=== PATIENT | female | born 1990 | race Caucasian/White ===

== ENCOUNTER 2021-07-14 13:36 | Emergency (ER) | payer MEDICAID ==
[~2021-07-14] VITALS: Ht 165.1 cm; Wt 104.6 kg
[2021-07-14] MEDS ORDERED: ALBUTEROL 90 MCG/ACT 8GM HFA INHALER INH ONE (14:35)
--- NOTE | 2021-07-14 15:10 | REP ---
INDICATION: sob COMPARISON: None. TECHNIQUE: PA and lateral. FINDINGS: The mediastinum and cardiac silhouette are normal. The lung murdock are clear and without acute consolidation, effusion, or pneumothorax. The skeletal structures are intact and normal. IMPRESSION: No acute cardiopulmonary process. <Electronically signed by Asher Bardales > 07/14/21 0737
[2021-07-14 16:10] VITALS: BP 130/66
--- NOTE | 2021-07-14 18:15 | ECGEPIP ---
[facility] - ED Test Date: 2021-07-14 Pat Name: THUY ARREAGA Department: Room: - Gender: Female Health Data Administrator: : [id number] Requested By: CONSUELO CUMMINGS PA-C. Order Number: [id number] Reading MD: Jorge Luis Brumfield Measurements Intervals [place] Rate: 82 P: 45 [place]: 156 QRS: 44 QRSD: 106 T: 60 QT: 376 QTc: 439 Interpretive Statements Normal sinus rhythm POOR R WAVE PROGRESSION NO PRIORS FOR COMPARISON Electronically Signed on 07-14-2021 18:14:46 EST by Jorge Luis Brumfield
== END 2021-07-14 16:13 | disposition home or self-care (01) ==
LOC: M ED 13:36
DX: J98.01 Acute bronchospasm (principal); J45.909 Unspecified asthma, uncomplicated; F33.9 Major depressive disorder, recurrent, unspecified; F41.9 Anxiety disorder, unspecified; F43.10 Post-traumatic stress disorder, unspecified; Z91.048 Other nonmedicinal substance allergy status

== ENCOUNTER 2021-09-25 11:17 | Emergency (ER) | payer MEDICAID, OTHER ==
[~2021-09-25] VITALS: Ht 165.1 cm; Wt 113.6 kg
[2021-09-25] MEDS ORDERED: KETO10TAB PO (15:19)
[2021-09-25 15:35] VITALS: BP 121/66
== END 2021-09-25 16:00 | disposition home or self-care (01) ==
LOC: M ED 11:17
DX: M25.551 Pain in right hip (principal); M54.50 Low back pain, unspecified; J45.909 Unspecified asthma, uncomplicated; F31.9 Bipolar disorder, unspecified; F33.9 Major depressive disorder, recurrent, unspecified; F41.9 Anxiety disorder, unspecified; F43.10 Post-traumatic stress disorder, unspecified; K21.9 Gastro-esophageal reflux disease without esophagitis; K44.9 Diaphragmatic hernia without obstruction or gangrene; Z91.048 Other nonmedicinal substance allergy status
CPT/HCPCS: 72110; 72220; 73502; 73700; 96372; 99283; J1885

== ENCOUNTER 2021-10-23 07:31 | Emergency (ER) | payer OTHER ==
[~2021-10-23] VITALS: Ht 165.1 cm; Wt 112.7 kg
[~2021-10-23 07:31] MED LIST: KETO10TAB PO
[2021-10-23 07:32] VITALS: BP 134/74
[2021-10-23] MEDS ORDERED: CYCL-707 (07:42)
[2021-10-23] MEDS ORDERED: FLUT1INH2 (07:42)
[2021-10-23] MEDS ORDERED: TUMS500C PO (07:42)
[2021-10-23] MEDS ORDERED: ARIP10TA32 (07:42)
[2021-10-23] MEDS ORDERED: ALBU8.5H (07:42)
[2021-10-23] MEDS ORDERED: NEXI20CA PO (07:42)
[2021-10-23] MEDS ORDERED: BUPR150T12 (07:42)
[2021-10-23] MEDS ORDERED: KETOROLAC 30 MG/ML 1ML VIAL IV ONE (08:00)
[2021-10-23] MEDS ORDERED: ONDANSETRON 4MG/2ML VIAL IV ONE (08:00)
[2021-10-23] MEDS ORDERED: PANTOPRAZOLE 40MG VIAL (C9113 PER 1) IV ONE (08:00)
[2021-10-23] MEDS ORDERED: NS 1,000 ML IV ONE (08:05)
[2021-10-23 08:19] LABS: BASO % 0.4 % (0.0-1.0); EOS # 0.1 10^3/uL (0.0-0.5); EOS % 0.9 % (0.0-3.0); HEMATOCRIT 40.1 % (36.0-47.0); HEMOGLOBIN 13.3 g/dl (12.0-15.5); LYMPH # 3.2 10^3/uL (1.5-5.0); LYMPH % 33.6 % (24.0-44.0); MEAN CORPUSCULAR HEMOGLOBIN 29.3 pg (27.0-33.0); MEAN CORPUSCULAR HGB CONC 33.2 g/dl (32.0-36.5); MEAN CORPUSCULAR VOLUME 88.3 fl (80.0-96.0); MONO # 0.5 10^3/uL (0.0-0.8); MONO % 4.8 % (2.0-8.0); NEUTROPHILS # 5.8 10^3/uL (1.5-8.5); NEUTROPHILS % 59.9 % (36.0-66.0); PLATELET COUNT, AUTOMATED 337 10^3/uL (150-450); RED BLOOD COUNT 4.54 10^6/uL (4.00-5.40); WHITE BLOOD COUNT 9.6 10^3/uL (4.0-10.0)
[2021-10-23 08:43] LABS: ALBUMIN 3.8 GM/DL (3.2-5.2); ALT/SGPT 36 U/L (12-78); BILIRUBIN,DIRECT < 0.1 MG/DL (0.0-0.2); BILIRUBIN,TOTAL 0.3 MG/DL (0.2-1.0); LIPASE 93 U/L (73-393); TOTAL PROTEIN 7.8 GM/DL (6.4-8.2)
[2021-10-23 08:45] LABS: HCG, SERUM QUALITATIVE NEGATIVE (NEGATIVE)
[2021-10-23] MEDS ORDERED: ISOVUE-370 76% 100ML VIAL As Ordered ONE (08:59)
[2021-10-23] MEDS ORDERED: ONDA4TAB6 PO (10:19)
== END 2021-10-23 10:42 | disposition home or self-care (01) ==
LOC: M ED 07:31
DX: J09.X9 Influenza due to identified novel influenza A virus with other manifestations (principal); R10.13 Epigastric pain; R11.2 Nausea with vomiting, unspecified; K76.0 Fatty (change of) liver, not elsewhere classified; R16.0 Hepatomegaly, not elsewhere classified; M79.7 Fibromyalgia; F31.9 Bipolar disorder, unspecified; F43.10 Post-traumatic stress disorder, unspecified; F41.9 Anxiety disorder, unspecified; Z79.899 Other long term (current) drug therapy; Z91.048 Other nonmedicinal substance allergy status
CPT/HCPCS: 74177; 80047; 80076; 83690; 84702; 84703; 85025; 87804; 96361; 96374; 96375; 99283; C9113; J1885; J2405; Q9967

== ENCOUNTER → 2021-12-08 | Outpatient (CLI) | payer OTHER ==
[~2021-12-08] MED LIST changes: +ALBU8.5H; +ARIP10TA32; +BUPR150T12; +CYCL-707; +FLUT1INH2; +NEXI20CA PO; +ONDA4TAB6 PO; +TUMS500C PO
== END ==
LOC: M PLAIMG 14:12
PROVIDERS: ATTEND Nurse Practitioner Adult Health
DX: J45.40 Moderate persistent asthma, uncomplicated (principal)

== ENCOUNTER → 2022-06-25 | Outpatient (CLI) | payer OTHER ==
[2022-06-25 12:14] LABS: HEMOGLOBIN 12.6 g/dl (12.0-15.5); MEAN CORPUSCULAR HEMOGLOBIN 28.4 pg (27.0-33.0); MEAN CORPUSCULAR HGB CONC 32.3 g/dl (32.0-36.5); PLATELET COUNT, AUTOMATED 305 10^3/uL (150-450); RED BLOOD COUNT 4.43 10^6/uL (4.00-5.40); WHITE BLOOD COUNT 7.2 10^3/uL (4.0-10.0)
[2022-06-25 12:33] LABS: HCG, SERUM QUALITATIVE NEGATIVE (NEGATIVE)
[2022-06-25 12:46] LABS: C REACTIVE PROTEIN QUANTITATIV 0.75 MG/DL (0.00-0.30); RHEUMATOID FACTOR QUANT < 10.0 IU/ML (<15.0)
[2022-06-25 13:59] LABS: ERYTHROCYTE SEDIMENTATION RATE 27 mm/hr (0-20)
== END ==
LOC: M LAB 10:50
PROVIDERS: ATTEND Internal Medicine
DX: M79.7 Fibromyalgia (principal); N91.1 Secondary amenorrhea

== ENCOUNTER → 2022-07-02 | Outpatient (CLI) | payer OTHER | LOC: M PLARAD 14:12 | PROVIDERS: ATTEND Nurse Practitioner Family | DX: M54.16 Radiculopathy, lumbar region (principal) ==

== ENCOUNTER 2022-09-21 09:52 | Day surgery (SDC) | payer OTHER ==
[~2022-09-21] VITALS: Ht 165.1 cm; Wt 102.4 kg
[~2022-09-21 09:52] MED LIST changes: +BACL10TA2 PO; +CETI-24 PO; +DULO1CAP5 PO; +FLUO20CA22 PO; +HYDR-3363 PO; +MONT10TA97 PO; +NS 1,000 ML IV ONE; +SUMA50TA2 PO
[2022-09-21] MEDS ORDERED: fentaNYL 100 MCG/2 ML INJECTION As Ordered ONE (10:57)
[2022-09-21] MEDS ORDERED: propofoL 200 MG/20 ML VIAL As Ordered ONE (10:57)
[2022-09-21] MEDS ORDERED: LIDOCAINE 2% 100MG/5ML SDV (FOR ANES.) As Ordered ONE (10:57)
[2022-09-21 11:51] VITALS: BP 120/88
== END 2022-09-21 11:52 | disposition home or self-care (01) ==
LOC: M OPP 09:52
PROVIDERS: ATTEND Internal Medicine Gastroenterology
DX: K58.1 Irritable bowel syndrome with constipation (principal); K64.8 Other hemorrhoids; R10.13 Epigastric pain; Z79.1 Long term (current) use of non-steroidal anti-inflammatories (NSAID); Z79.51 Long term (current) use of inhaled steroids; Z79.52 Long term (current) use of systemic steroids; Z79.899 Other long term (current) drug therapy; J45.909 Unspecified asthma, uncomplicated; G43.909 Migraine, unspecified, not intractable, without status migrainosus; Z87.891 Personal history of nicotine dependence; Z91.011 Allergy to milk products; Z91.048 Other nonmedicinal substance allergy status

== ENCOUNTER → 2023-01-14 | Outpatient (CLI) | payer OTHER ==
[~2023-01-14] MED LIST changes: -NS 1,000 ML IV ONE
== END ==
LOC: M SLEEP HO 11:36
PROVIDERS: ATTEND Nurse Practitioner Adult Health
DX: G47.30 Sleep apnea, unspecified (principal)

== ENCOUNTER → 2023-07-08 | Outpatient (CLI) | payer OTHER | LOC: M PLAIMG 15:13 | PROVIDERS: ATTEND Internal Medicine | DX: M25.40 Effusion, unspecified joint (principal) ==

== ENCOUNTER → 2023-07-08 | Outpatient (REF) | payer OTHER, MEDICAID ==
[2023-07-08 17:31] LABS: C REACTIVE PROTEIN QUANTITATIV 2.4 MG/DL (<1.0)
[2023-07-08 17:32] LABS: COMPLEMENT C3 204.7 MG/DL (84.0-160.0); COMPLEMENT C4 34.7 MG/DL (12-36); IMMUNOGLOBULIN M 205.2 MG/DL (50-300)
[2023-07-08 17:33] LABS: PERCENT SATURATION 19.5 % (13.2-45.0)
[2023-07-08 17:34] LABS: CREATININE,RANDOM URINE 84.8 MG/DL
[2023-07-08 17:35] LABS: FERRITIN 145.4 NG/ML (7.3-270.7)
[2023-07-08 17:58] LABS: APPEARANCE, URINE HAZY (CLEAR); BACTERIA, URINE AUTO 1+ (NEGATIVE); BILIRUBIN, URINE AUTO NEGATIVE (NEGATIVE); BLOOD, URINE BLOOD NEGATIVE (NEGATIVE); COLOR, URINE YELLOW (YELLOW); GLUCOSE, URINE (UA) AUTO NEGATIVE (NEGATIVE); KETONE, URINE AUTO NEGATIVE (NEGATIVE); LEUKOCYTE ESTERASE, URINE AUTO 3+ (NEGATIVE); MUCUS, URINE SMALL (NEGATIVE); NITRITE, URINE AUTO NEGATIVE (NEGATIVE); PROTEIN, URINE AUTO NEGATIVE (NEGATIVE); RBC, URINE AUTO 2 /HPF (0-3); SPECIFIC GRAVITY URINE AUTO 1.008 (1.002-1.035); SQUAMOUS EPITHELIAL CELL UR AU 5 /HPF (0-6); UROBILINOGEN, URINE AUTO 0.2 mg/dL (0.0-2.0); WBC, URINE AUTO 36 /HPF (0-3)
== END ==
LOC: M SFHCRHEU 13:46
PROVIDERS: ATTEND Internal Medicine
DX: R53.83 Other fatigue (principal); M79.7 Fibromyalgia; B99.9 Unspecified infectious disease; M25.40 Effusion, unspecified joint

== ENCOUNTER → 2023-09-05 | Outpatient (REF) | payer OTHER, MEDICAID ==
[2023-09-05 16:28] LABS: APPEARANCE, URINE CLEAR (CLEAR); BACTERIA, URINE AUTO NEGATIVE (NEGATIVE); BILIRUBIN, URINE AUTO NEGATIVE (NEGATIVE); BLOOD, URINE BLOOD 1+ (NEGATIVE); COLOR, URINE STRAW (YELLOW); GLUCOSE, URINE (UA) AUTO NEGATIVE (NEGATIVE); KETONE, URINE AUTO NEGATIVE (NEGATIVE); LEUKOCYTE ESTERASE, URINE AUTO 1+ (NEGATIVE); NITRITE, URINE AUTO NEGATIVE (NEGATIVE); PROTEIN, URINE AUTO NEGATIVE (NEGATIVE); RBC, URINE AUTO 2 /HPF (0-3); SPECIFIC GRAVITY URINE AUTO 1.004 (1.002-1.035); SQUAMOUS EPITHELIAL CELL UR AU 3 /HPF (0-6); UROBILINOGEN, URINE AUTO 0.2 mg/dL (0.0-2.0); WBC, URINE AUTO 3 /HPF (0-3)
[2023-09-05 16:41] LABS: BASO % 0.5 % (0.0-1.0); EOS # 0.1 10^3/uL (0.0-0.5); EOS % 0.8 % (0.0-3.0); HEMATOCRIT 40.5 % (36.0-47.0); HEMOGLOBIN 13.2 g/dl (12.0-15.5); LYMPH # 2.6 10^3/uL (1.5-5.0); LYMPH % 33.5 % (24.0-44.0); MEAN CORPUSCULAR HEMOGLOBIN 28.6 pg (27.0-33.0); MEAN CORPUSCULAR HGB CONC 32.6 g/dl (32.0-36.5); MEAN CORPUSCULAR VOLUME 87.9 fl (80.0-96.0); MONO # 0.4 10^3/uL (0.0-0.8); MONO % 4.9 % (2.0-8.0); NEUTROPHILS # 4.6 10^3/uL (1.5-8.5); NEUTROPHILS % 59.8 % (36.0-66.0); PLATELET COUNT, AUTOMATED 367 10^3/uL (150-450); RED BLOOD COUNT 4.61 10^6/uL (4.00-5.40); WHITE BLOOD COUNT 7.7 10^3/uL (4.0-10.0)
[2023-09-05 17:06] LABS: ALKALINE PHOSPHATASE 99 U/L (46-116); ALT/SGPT 48 U/L (7.0-40); AST/SGOT 25 U/L (<34); BILIRUBIN,DIRECT 0.1 MG/DL (<0.4); BILIRUBIN,TOTAL 0.4 MG/DL (0.3-1.2); BLOOD UREA NITROGEN 13 MG/DL (9-23); CALCIUM LEVEL 9.4 MG/DL (8.5-10.1); CARBON DIOXIDE LEVEL 27 MMOL/L (20-31); CHLORIDE LEVEL 107 MMOL/L (98-107); CREATININE FOR GFR 0.74 MG/DL (0.55-1.30); GLOMERULAR FILTRATION RATE > 60.0 (>60); GLUCOSE, FASTING 117 MG/DL (60-100); POTASSIUM SERUM 3.9 MMOL/L (3.5-5.1); SODIUM LEVEL 141 MMOL/L (136-145); TOTAL PROTEIN 7.5 G/DL (5.7-8.2)
[2023-09-05 17:09] LABS: HEPATITIS B SURFACE ANTIBODY POSITIVE (POSITIVE)
[2023-09-05 17:41] LABS: HEPATITIS C VIRUS ABY INDEX 0.03 INDEX (<0.8)
== END ==
LOC: M SFHCRHEU 14:06
PROVIDERS: ATTEND Internal Medicine
DX: M06.09 Rheumatoid arthritis without rheumatoid factor, multiple sites (principal); R82.992 Hyperoxaluria; Z11.59 Encounter for screening for other viral diseases

== ENCOUNTER → 2023-09-20 | Outpatient (REF) | payer OTHER, MEDICAID ==
[2023-09-20 17:33] LABS: ALBUMIN 3.7 G/DL (3.2-5.2); BILIRUBIN,DIRECT 0.1 MG/DL (<0.4); BILIRUBIN,TOTAL 0.5 MG/DL (0.3-1.2); TOTAL PROTEIN 7.3 G/DL (5.7-8.2)
== END ==
LOC: M SFHCRHEU 13:57
PROVIDERS: ATTEND Internal Medicine
DX: R74.8 Abnormal levels of other serum enzymes (principal)

== ENCOUNTER 2023-12-06 19:30 | Emergency (ER) | payer OTHER, MEDICAID ==
[~2023-12-06] VITALS: Ht 167.6 cm; Wt 107.1 kg
[2023-12-06 20:16] LABS: BASO % 0.3 % (0.0-1.0); EOS # 0.1 10^3/uL (0.0-0.5); EOS % 1.1 % (0.0-3.0); HEMATOCRIT 37.4 % (36.0-47.0); HEMOGLOBIN 12.6 g/dl (12.0-15.5); LYMPH # 2.7 10^3/uL (1.5-5.0); LYMPH % 38.4 % (24.0-44.0); MEAN CORPUSCULAR HEMOGLOBIN 29.2 pg (27.0-33.0); MEAN CORPUSCULAR HGB CONC 33.7 g/dl (32.0-36.5); MEAN CORPUSCULAR VOLUME 86.6 fl (80.0-96.0); MONO # 0.5 10^3/uL (0.0-0.8); MONO % 6.8 % (2.0-8.0); NEUTROPHILS # 3.7 10^3/uL (1.5-8.5); NEUTROPHILS % 53.1 % (36.0-66.0); PLATELET COUNT, AUTOMATED 304 10^3/uL (150-450); RED BLOOD COUNT 4.32 10^6/uL (4.00-5.40)
[2023-12-06 20:42] LABS: CK-MB VALUE MASS < 1.0 NG/ML (<3.6)
[2023-12-06 20:45] LABS: BLOOD UREA NITROGEN 12 MG/DL (9-23); CALCIUM LEVEL 9.4 MG/DL (8.5-10.1); CARBON DIOXIDE LEVEL 26 MMOL/L (20-31); CHLORIDE LEVEL 107 MMOL/L (98-107); CREATININE FOR GFR 0.79 MG/DL (0.55-1.30); GLOMERULAR FILTRATION RATE > 60.0 (>60); GLUCOSE, FASTING 125 MG/DL (60-100); POTASSIUM SERUM 3.6 MMOL/L (3.5-5.1); SODIUM LEVEL 137 MMOL/L (136-145)
[2023-12-06 20:46] LABS: CPK CREATINE PHOSPHOKINASE 67 U/L (34-145); MB/CK RELATIVE INDEX 1.49 (< OR =4)
[2023-12-06 22:10] LABS: CK-MB VALUE MASS < 1.0 NG/ML (<3.6)
[2023-12-06 22:11] LABS: CPK CREATINE PHOSPHOKINASE 65 U/L (34-145); MB/CK RELATIVE INDEX 1.53 (< OR =4)
[2023-12-07 02:23] VITALS: BP 105/51; TEMP 98; O2SAT 99
== END 2023-12-07 02:24 | disposition left against medical advice (07) ==
LOC: M ED 19:30
DX: Z53.21 Procedure and treatment not carried out due to patient leaving prior to being seen by health care provider (principal)

== ENCOUNTER → 2024-04-09 | Outpatient (CLI) | payer OTHER ==
[~2024-04-09] MED LIST changes: +FLUO-365 PO; -FLUO20CA22 PO; +ONDA-282 PO; -ONDA4TAB6 PO
[2024-04-09 13:52] LABS: CHOLESTEROL RISK RATIO 5.04 (<5); HDL CHOLESTEROL 35.5 MG/DL (>40); LDL CHOLESTEROL 81.5 MG/DL (<100); NON-HDL-C 143.5 MG/DL
[2024-04-09 13:55] LABS: THYROID STIMULATING HORMONE 1.021 uIU/ML (0.55-4.78)
== END ==
LOC: M PLALAB 10:36
PROVIDERS: ATTEND Internal Medicine Cardiovascular Disease
DX: R00.2 Palpitations (principal); R07.9 Chest pain, unspecified

== ENCOUNTER → 2024-04-09 | Outpatient (CLI) | payer OTHER ==
[2024-04-09 13:47] LABS: BASO % 0.4 % (0.0-1.0); EOS # 0.1 10^3/uL (0.0-0.5); EOS % 1.2 % (0.0-3.0); HEMATOCRIT 40.2 % (36.0-47.0); HEMOGLOBIN 13.2 g/dl (12.0-15.5); LYMPH # 2.7 10^3/uL (1.5-5.0); LYMPH % 37.3 % (24.0-44.0); MEAN CORPUSCULAR HEMOGLOBIN 28.5 pg (27.0-33.0); MEAN CORPUSCULAR HGB CONC 32.8 g/dl (32.0-36.5); MEAN CORPUSCULAR VOLUME 86.8 fl (80.0-96.0); MONO # 0.4 10^3/uL (0.0-0.8); MONO % 5.2 % (2.0-8.0); NEUTROPHILS # 4.1 10^3/uL (1.5-8.5); NEUTROPHILS % 55.6 % (36.0-66.0); PLATELET COUNT, AUTOMATED 325 10^3/uL (150-450); RED BLOOD COUNT 4.63 10^6/uL (4.00-5.40); WHITE BLOOD COUNT 7.3 10^3/uL (4.0-10.0)
[2024-04-09 13:51] LABS: ALBUMIN 3.6 G/DL (3.2-5.2); ALKALINE PHOSPHATASE 95 U/L (46-116); ALT/SGPT 42 U/L (7.0-40); AST/SGOT 22 U/L (<34); BILIRUBIN,DIRECT 0.1 MG/DL (<0.4); BILIRUBIN,TOTAL 0.5 MG/DL (0.3-1.2); BLOOD UREA NITROGEN 11 MG/DL (9-23); CALCIUM LEVEL 9.3 MG/DL (8.5-10.1); CARBON DIOXIDE LEVEL 28 MMOL/L (20-31); CHLORIDE LEVEL 109 MMOL/L (98-107); CREATININE FOR GFR 0.69 MG/DL (0.55-1.30); GLOMERULAR FILTRATION RATE > 60.0 (>60); GLUCOSE, FASTING 102 MG/DL (60-100); POTASSIUM SERUM 4.5 MMOL/L (3.5-5.1); SODIUM LEVEL 141 MMOL/L (136-145)
[2024-04-09 13:59] LABS: ERYTHROCYTE SEDIMENTATION RATE 26 mm/hr (0-20)
== END ==
LOC: M PLALAB 10:38
PROVIDERS: ATTEND Internal Medicine
DX: M06.09 Rheumatoid arthritis without rheumatoid factor, multiple sites (principal)

== ENCOUNTER → 2024-04-09 | Outpatient (CLI) | payer OTHER ==
[2024-04-09 13:47] LABS: BASO % 0.4 % (0.0-1.0); EOS # 0.1 10^3/uL (0.0-0.5); EOS % 1.4 % (0.0-3.0); HEMATOCRIT 40.2 % (36.0-47.0); HEMOGLOBIN 13.3 g/dl (12.0-15.5); LYMPH # 2.7 10^3/uL (1.5-5.0); LYMPH % 37.7 % (24.0-44.0); MEAN CORPUSCULAR HEMOGLOBIN 28.7 pg (27.0-33.0); MEAN CORPUSCULAR HGB CONC 33.1 g/dl (32.0-36.5); MEAN CORPUSCULAR VOLUME 86.8 fl (80.0-96.0); MONO # 0.4 10^3/uL (0.0-0.8); MONO % 5.1 % (2.0-8.0); NEUTROPHILS # 3.9 10^3/uL (1.5-8.5); NEUTROPHILS % 55.3 % (36.0-66.0); PLATELET COUNT, AUTOMATED 319 10^3/uL (150-450); RED BLOOD COUNT 4.63 10^6/uL (4.00-5.40); WHITE BLOOD COUNT 7.1 10^3/uL (4.0-10.0)
[2024-04-09 13:53] LABS: ALBUMIN 3.6 G/DL (3.2-5.2); ALKALINE PHOSPHATASE 94 U/L (46-116); ALT/SGPT 42 U/L (7.0-40); AST/SGOT 22 U/L (<34); BILIRUBIN,TOTAL 0.4 MG/DL (0.3-1.2); BLOOD UREA NITROGEN 10 MG/DL (9-23); CALCIUM LEVEL 9.3 MG/DL (8.5-10.1); CARBON DIOXIDE LEVEL 26 MMOL/L (20-31); CHLORIDE LEVEL 111 MMOL/L (98-107); CHOLESTEROL LEVEL 182 MG/DL (<200); CHOLESTEROL RISK RATIO 5.54 (<5); CREATININE FOR GFR 0.67 MG/DL (0.55-1.30); GLOMERULAR FILTRATION RATE > 60.0 (>60); GLUCOSE, FASTING 100 MG/DL (60-100); HDL CHOLESTEROL 32.8 MG/DL (>40); LDL CHOLESTEROL 87.2 MG/DL (<100); NON-HDL-C 149.2 MG/DL; POTASSIUM SERUM 4.3 MMOL/L (3.5-5.1); SODIUM LEVEL 139 MMOL/L (136-145); TOTAL PROTEIN 6.9 G/DL (5.7-8.2); TRIGLYCERIDES LEVEL 310 MG/DL (<150)
[2024-04-09 13:54] LABS: FREE T4 1.03 NG/DL (0.89-1.76)
[2024-04-09 13:55] LABS: THYROID STIMULATING HORMONE 1.069 uIU/ML (0.55-4.78)
[2024-04-09 13:59] LABS: HEMOGLOBIN A1c 4.8 % (4.0-6.0)
== END ==
LOC: M PLALAB 10:34
PROVIDERS: ATTEND Physician Assistant
DX: R19.7 Diarrhea, unspecified (principal); M79.7 Fibromyalgia; R00.0 Tachycardia, unspecified; J45.40 Moderate persistent asthma, uncomplicated; Z68.37 Body mass index [BMI] 37.0-37.9, adult

== ENCOUNTER → 2024-05-16 | Outpatient (CLI) | payer OTHER ==
[2024-05-16 19:08] LABS: BASO % 0.5 % (0.0-1.0); EOS # 0.2 10^3/uL (0.0-0.5); EOS % 2.1 % (0.0-3.0); HEMATOCRIT 39.8 % (36.0-47.0); LYMPH # 2.9 10^3/uL (1.5-5.0); LYMPH % 38.2 % (24.0-44.0); MEAN CORPUSCULAR HEMOGLOBIN 28.6 pg (27.0-33.0); MEAN CORPUSCULAR HGB CONC 32.7 g/dl (32.0-36.5); MEAN CORPUSCULAR VOLUME 87.7 fl (80.0-96.0); MONO # 0.4 10^3/uL (0.0-0.8); NEUTROPHILS % 52.7 % (36.0-66.0); PLATELET COUNT, AUTOMATED 295 10^3/uL (150-450); RED BLOOD COUNT 4.54 10^6/uL (4.00-5.40); WHITE BLOOD COUNT 7.6 10^3/uL (4.0-10.0)
[2024-05-16 19:20] LABS: ERYTHROCYTE SEDIMENTATION RATE 42 mm/hr (0-20)
[2024-05-16 19:37] LABS: ALBUMIN 3.7 G/DL (3.2-5.2); ALKALINE PHOSPHATASE 102 U/L (46-116); ALT/SGPT 49 U/L (7.0-40); AST/SGOT 29 U/L (<34); BILIRUBIN,DIRECT 0.1 MG/DL (<0.4); BILIRUBIN,TOTAL 0.4 MG/DL (0.3-1.2); BLOOD UREA NITROGEN 9 MG/DL (9-23); CALCIUM LEVEL 8.7 MG/DL (8.5-10.1); CARBON DIOXIDE LEVEL 23 MMOL/L (20-31); CHLORIDE LEVEL 108 MMOL/L (98-107); CREATININE FOR GFR 0.63 MG/DL (0.55-1.30); GLOMERULAR FILTRATION RATE > 60.0 (>60); GLUCOSE, FASTING 189 MG/DL (60-100); POTASSIUM SERUM 3.7 MMOL/L (3.5-5.1); SODIUM LEVEL 138 MMOL/L (136-145); TOTAL PROTEIN 7.1 G/DL (5.7-8.2)
== END ==
LOC: M PLALAB 15:40
PROVIDERS: ATTEND Internal Medicine
DX: M06.09 Rheumatoid arthritis without rheumatoid factor, multiple sites (principal)

== ENCOUNTER → 2024-05-24 | Outpatient (CLI) | payer OTHER ==
[2024-05-24 17:45] LABS: BASO % 0.4 % (0.0-1.0); EOS # 0.1 10^3/uL (0.0-0.5); EOS % 1.8 % (0.0-3.0); HEMATOCRIT 37.8 % (36.0-47.0); HEMOGLOBIN 12.5 g/dl (12.0-15.5); LYMPH # 2.9 10^3/uL (1.5-5.0); LYMPH % 41.5 % (24.0-44.0); MEAN CORPUSCULAR HGB CONC 33.1 g/dl (32.0-36.5); MEAN CORPUSCULAR VOLUME 87.7 fl (80.0-96.0); MONO # 0.3 10^3/uL (0.0-0.8); MONO % 4.6 % (2.0-8.0); NEUTROPHILS # 3.6 10^3/uL (1.5-8.5); NEUTROPHILS % 51.4 % (36.0-66.0); PLATELET COUNT, AUTOMATED 340 10^3/uL (150-450); RED BLOOD COUNT 4.31 10^6/uL (4.00-5.40)
[2024-05-24 17:55] LABS: ERYTHROCYTE SEDIMENTATION RATE 32 mm/hr (0-20)
== END ==
LOC: M PLAIMG 14:31
PROVIDERS: ATTEND Internal Medicine Cardiovascular Disease
DX: R94.31 Abnormal electrocardiogram [ECG] [EKG] (principal); G47.33 Obstructive sleep apnea (adult) (pediatric)

== ENCOUNTER → 2024-06-07 | Outpatient (CLI) | payer OTHER ==
[~2024-06-07] MED LIST changes: -ARIP10TA32; +ARIP10TA63
[2024-06-07 16:21] LABS: BASO % 0.3 % (0.0-1.0); EOS # 0.1 10^3/uL (0.0-0.5); EOS % 1.4 % (0.0-3.0); HEMATOCRIT 40.5 % (36.0-47.0); HEMOGLOBIN 13.1 g/dl (12.0-15.5); LYMPH # 3.2 10^3/uL (1.5-5.0); LYMPH % 36.1 % (24.0-44.0); MEAN CORPUSCULAR HEMOGLOBIN 28.4 pg (27.0-33.0); MEAN CORPUSCULAR HGB CONC 32.3 g/dl (32.0-36.5); MEAN CORPUSCULAR VOLUME 87.9 fl (80.0-96.0); MONO # 0.6 10^3/uL (0.0-0.8); MONO % 7.1 % (2.0-8.0); NEUTROPHILS # 4.8 10^3/uL (1.5-8.5); NEUTROPHILS % 54.6 % (36.0-66.0); PLATELET COUNT, AUTOMATED 330 10^3/uL (150-450); RED BLOOD COUNT 4.61 10^6/uL (4.00-5.40); WHITE BLOOD COUNT 8.8 10^3/uL (4.0-10.0)
[2024-06-07 16:30] LABS: ERYTHROCYTE SEDIMENTATION RATE 30 mm/hr (0-20)
[2024-06-07 17:20] LABS: ALBUMIN 3.8 G/DL (3.2-5.2); ALKALINE PHOSPHATASE 95 U/L (46-116); ALT/SGPT 62 U/L (7.0-40); AST/SGOT 31 U/L (<34); BILIRUBIN,DIRECT < 0.1 MG/DL (<0.4); BILIRUBIN,TOTAL 0.3 MG/DL (0.3-1.2); BLOOD UREA NITROGEN 8 MG/DL (9-23); CALCIUM LEVEL 9.6 MG/DL (8.5-10.1); CARBON DIOXIDE LEVEL 26 MMOL/L (20-31); CHLORIDE LEVEL 107 MMOL/L (98-107); CREATININE FOR GFR 0.72 MG/DL (0.55-1.30); GLOMERULAR FILTRATION RATE > 60.0 (>60); GLUCOSE, FASTING 109 MG/DL (60-100); POTASSIUM SERUM 3.9 MMOL/L (3.5-5.1); SODIUM LEVEL 139 MMOL/L (136-145); TOTAL PROTEIN 7.3 G/DL (5.7-8.2)
== END ==
LOC: M PLALAB 12:36
PROVIDERS: ATTEND Internal Medicine
DX: M06.09 Rheumatoid arthritis without rheumatoid factor, multiple sites (principal)

== ENCOUNTER → 2024-07-17 | Outpatient (CLI) | payer OTHER ==
[2024-07-17 14:16] LABS: BASO # 0.1 10^3/uL (0.0-0.2); BASO % 0.3 % (0.0-1.0); EOS % 0.1 % (0.0-3.0); HEMATOCRIT 40.2 % (36.0-47.0); HEMOGLOBIN 12.9 g/dl (12.0-15.5); LYMPH # 4.6 10^3/uL (1.5-5.0); LYMPH % 29.8 % (24.0-44.0); MEAN CORPUSCULAR HEMOGLOBIN 28.9 pg (27.0-33.0); MEAN CORPUSCULAR HGB CONC 32.1 g/dl (32.0-36.5); MEAN CORPUSCULAR VOLUME 89.9 fl (80.0-96.0); MONO # 0.9 10^3/uL (0.0-0.8); MONO % 5.8 % (2.0-8.0); NEUTROPHILS # 9.6 10^3/uL (1.5-8.5); NEUTROPHILS % 62.6 % (36.0-66.0); PLATELET COUNT, AUTOMATED 404 10^3/uL (150-450); RED BLOOD COUNT 4.47 10^6/uL (4.00-5.40); WHITE BLOOD COUNT 15.4 10^3/uL (4.0-10.0)
[2024-07-17 14:22] LABS: ALBUMIN 3.8 G/DL (3.2-5.2); ALKALINE PHOSPHATASE 91 U/L (35-104); ALT/SGPT 47 U/L (7.0-40); AST/SGOT 12 U/L (<34); BILIRUBIN,DIRECT < 0.1 MG/DL (<0.4); BILIRUBIN,TOTAL 0.3 MG/DL (0.3-1.2); BLOOD UREA NITROGEN 12 MG/DL (9-23); CALCIUM LEVEL 10.1 MG/DL (8.5-10.1); CARBON DIOXIDE LEVEL 28 MMOL/L (20-31); CHLORIDE LEVEL 104 MMOL/L (98-107); GLOMERULAR FILTRATION RATE > 60.0 (>60); GLUCOSE, FASTING 93 MG/DL (60-100); POTASSIUM SERUM 4.5 MMOL/L (3.5-5.1); SODIUM LEVEL 139 MMOL/L (136-145); TOTAL PROTEIN 7.3 G/DL (5.7-8.2)
[2024-07-17 14:25] LABS: ERYTHROCYTE SEDIMENTATION RATE 42 mm/hr (0-20)
== END ==
LOC: M PLALAB 09:24
PROVIDERS: ATTEND Internal Medicine
DX: M06.09 Rheumatoid arthritis without rheumatoid factor, multiple sites (principal)

== ENCOUNTER → 2024-08-06 | Outpatient (REF) | payer MEDICAID, OTHER ==
[2024-08-06 18:54] LABS: APPEARANCE, URINE CLEAR (CLEAR); BACTERIA, URINE AUTO NEGATIVE (NEGATIVE); BILIRUBIN, URINE AUTO NEGATIVE (NEGATIVE); BLOOD, URINE BLOOD NEGATIVE (NEGATIVE); COLOR, URINE STRAW (YELLOW); GLUCOSE, URINE (UA) AUTO NEGATIVE (NEGATIVE); KETONE, URINE AUTO NEGATIVE (NEGATIVE); LEUKOCYTE ESTERASE, URINE AUTO TRACE (NEGATIVE); MUCUS, URINE SMALL (NEGATIVE); NITRITE, URINE AUTO NEGATIVE (NEGATIVE); PROTEIN, URINE AUTO NEGATIVE (NEGATIVE); RBC, URINE AUTO 0 /HPF (0-3); SPECIFIC GRAVITY URINE AUTO 1.005 (1.002-1.035); SQUAMOUS EPITHELIAL CELL UR AU 0 /HPF (0-6); UROBILINOGEN, URINE AUTO 0.2 mg/dL (0.0-2.0); WBC, URINE AUTO 0 /HPF (0-3)
== END ==
LOC: M SFHCADAM 17:08
PROVIDERS: ATTEND Physician Assistant
DX: R73.9 Hyperglycemia, unspecified (principal); R35.0 Frequency of micturition

== ENCOUNTER → 2024-10-10 | Outpatient (REF) | payer MEDICAID, OTHER | LOC: M SFHCADAM 17:15 | PROVIDERS: ATTEND Physician Assistant | DX: R35.0 Frequency of micturition (principal) ==

== ENCOUNTER → 2024-11-01 | Outpatient (REF) | payer OTHER ==
[2024-11-01 18:50] LABS: BASO % 0.4 % (0.0-1.0); EOS # 0.1 10^3/uL (0.0-0.5); EOS % 1.5 % (0.0-3.0); HEMATOCRIT 43.6 % (36.0-47.0); HEMOGLOBIN 13.8 g/dl (12.0-15.5); LYMPH # 3.2 10^3/uL (1.5-5.0); LYMPH % 35.5 % (24.0-44.0); MEAN CORPUSCULAR HEMOGLOBIN 27.7 pg (27.0-33.0); MEAN CORPUSCULAR HGB CONC 31.7 g/dl (32.0-36.5); MEAN CORPUSCULAR VOLUME 87.4 fl (80.0-96.0); MONO # 0.4 10^3/uL (0.0-0.8); MONO % 4.2 % (2.0-8.0); NEUTROPHILS # 5.3 10^3/uL (1.5-8.5); NEUTROPHILS % 58.1 % (36.0-66.0); PLATELET COUNT, AUTOMATED 351 10^3/uL (150-450); RED BLOOD COUNT 4.99 10^6/uL (4.00-5.40); WHITE BLOOD COUNT 9.1 10^3/uL (4.0-10.0)
[2024-11-01 18:59] LABS: ERYTHROCYTE SEDIMENTATION RATE 29 mm/hr (0-20)
[2024-11-01 19:18] LABS: ALBUMIN 3.7 G/DL (3.2-5.2); ALKALINE PHOSPHATASE 93 U/L (35-104); ALT/SGPT 37 U/L (7.0-40); AST/SGOT 21 U/L (<34); BILIRUBIN,DIRECT 0.1 MG/DL (<0.4); BILIRUBIN,TOTAL 0.4 MG/DL (0.3-1.2); BLOOD UREA NITROGEN 10 MG/DL (9-23); C REACTIVE PROTEIN QUANTITATIV 1.52 MG/DL (<1.0); CALCIUM LEVEL 9.5 MG/DL (8.5-10.1); CARBON DIOXIDE LEVEL 27 MMOL/L (20-31); CHLORIDE LEVEL 106 MMOL/L (98-107); CREATININE FOR GFR 0.74 MG/DL (0.55-1.30); GLOMERULAR FILTRATION RATE > 60.0 (>60); GLUCOSE, FASTING 128 MG/DL (60-100); SODIUM LEVEL 142 MMOL/L (136-145); TOTAL PROTEIN 7.2 G/DL (5.7-8.2)
== END ==
LOC: M LABDRWAD 17:32
PROVIDERS: ATTEND Internal Medicine
DX: M06.09 Rheumatoid arthritis without rheumatoid factor, multiple sites (principal)

== ENCOUNTER → 2024-12-13 | Outpatient (CLI) | payer OTHER | LOC: M RAD 10:50 | PROVIDERS: ATTEND Physician Assistant | DX: N30.90 Cystitis, unspecified without hematuria (principal) ==

== ENCOUNTER → 2025-01-07 | Outpatient (REF) | payer MEDICAID, OTHER | LOC: M SFHCADAM 13:05 | PROVIDERS: ATTEND Physician Assistant | DX: J02.9 Acute pharyngitis, unspecified (principal) ==

== ENCOUNTER → 2025-01-10 | Outpatient (REF) | payer MEDICAID, OTHER ==
[2025-01-10 13:25] LABS: APPEARANCE, URINE CLEAR (CLEAR); BACTERIA, URINE AUTO NEGATIVE (NEGATIVE); BILIRUBIN, URINE AUTO NEGATIVE (NEGATIVE); BLOOD, URINE BLOOD NEGATIVE (NEGATIVE); COLOR, URINE STRAW (YELLOW); GLUCOSE, URINE (UA) AUTO NEGATIVE (NEGATIVE); KETONE, URINE AUTO NEGATIVE (NEGATIVE); LEUKOCYTE ESTERASE, URINE AUTO TRACE (NEGATIVE); MUCUS, URINE SMALL (NEGATIVE); NITRITE, URINE AUTO NEGATIVE (NEGATIVE); PROTEIN, URINE AUTO NEGATIVE (NEGATIVE); RBC, URINE AUTO 1 /HPF (0-3); SPECIFIC GRAVITY URINE AUTO 1.004 (1.002-1.035); SQUAMOUS EPITHELIAL CELL UR AU 1 /HPF (0-6); UROBILINOGEN, URINE AUTO 0.2 mg/dL (0.0-2.0); WBC, URINE AUTO 0 /HPF (0-3)
== END ==
LOC: M SMT 12:44
PROVIDERS: ATTEND Specialist
DX: N30.20 Other chronic cystitis without hematuria (principal)

== ENCOUNTER → 2025-03-21 | Outpatient (REF) | payer OTHER ==
[2025-03-21 17:15] LABS: BASO # 0.0 10^3/uL (0.0-0.2); BASO % 0.4 % (0.0-1.0); EOS # 0.2 10^3/uL (0.0-0.5); EOS % 1.8 % (0.0-3.0); LYMPH # 3.4 10^3/uL (1.5-5.0); LYMPH % 38.0 % (24.0-44.0); MONO # 0.6 10^3/uL (0.0-0.8); MONO % 6.6 % (2.0-8.0); NEUTROPHILS # 4.7 10^3/uL (1.5-8.5); NEUTROPHILS % 52.8 % (36.0-66.0); PLATELET COUNT, AUTOMATED 327 10^3/uL (150-450)
[2025-03-21 17:38] LABS: ALT/SGPT 38 U/L (7.0-40); AST/SGOT 24 U/L (<34); CALCIUM LEVEL 9.4 MG/DL (8.5-10.1); CARBON DIOXIDE LEVEL 27 MMOL/L (20-31); CHLORIDE LEVEL 103 MMOL/L (98-107); CREATININE FOR GFR 0.79 MG/DL (0.55-1.30); GLOMERULAR FILTRATION RATE > 90.0 (>60); POTASSIUM SERUM 4.0 MMOL/L (3.5-5.1); SODIUM LEVEL 143 MMOL/L (136-145)
[2025-03-21 17:41] LABS: FREE T4 1.12 NG/DL (0.89-1.76)
[2025-03-21 17:42] LABS: PROLACTIN 17.49 NG/ML; TOTAL 25(OH) VITAMIN D 37.7 NG/ML (20.0-100.0)
[2025-03-21 17:55] LABS: ESTIMATED AVERAGE GLUCOSE 94.0 MG/DL (60-110)
== END ==
LOC: M SFHCADAM 14:53
PROVIDERS: ATTEND Physician Assistant
DX: N64.3 Galactorrhea not associated with childbirth (principal); R11.10 Vomiting, unspecified; K21.9 Gastro-esophageal reflux disease without esophagitis; N30.90 Cystitis, unspecified without hematuria; M06.09 Rheumatoid arthritis without rheumatoid factor, multiple sites; R93.1 Abnormal findings on diagnostic imaging of heart and coronary circulation; E16.2 Hypoglycemia, unspecified

== ENCOUNTER → 2025-04-04 | Outpatient (CLI) | payer OTHER | LOC: M RAD 13:59 | PROVIDERS: ATTEND Otolaryngology | DX: R59.0 Localized enlarged lymph nodes (principal) ==

== ENCOUNTER → 2025-05-14 | Outpatient (CLI) | payer OTHER | LOC: M PLAIMG 15:16 | PROVIDERS: ATTEND Physician Assistant | DX: M54.50 Low back pain, unspecified (principal) ==

== ENCOUNTER → 2025-05-21 | Outpatient (CLI) | payer OTHER | LOC: M RAD 15:43 | PROVIDERS: ATTEND Otolaryngology | DX: R22.1 Localized swelling, mass and lump, neck (principal) ==

== ENCOUNTER → 2025-08-06 | Outpatient (CLI) | payer OTHER ==
[~2025-08-06] MED LIST changes: +LIDOCAINE 1% MDV 20 ML VIAL SC ONE
[2025-08-06 11:10] VITALS: BP 140/76; TEMP 98.4; O2SAT 98
== END ==
LOC: M IRPRO 10:43
PROVIDERS: ATTEND Otolaryngology
DX: R22.1 Localized swelling, mass and lump, neck (principal)